=== PATIENT | male | born 1975 | race Caucasian/White ===

== ENCOUNTER 2016-09-27 20:46 | Emergency (ER) | payer BC ==
[~2016-09-27 20:46] MED LIST: [UNRECOGNIZED DRUG - REMARK]
[2016-09-27 21:24] LABS: INFLUENZA A SCREEN NEGATIVE (NEGATIVE); INFLUENZA B SCREEN NEGATIVE (NEGATIVE)
== END 2016-09-28 01:17 | disposition home or self-care (01) ==
LOC: ER 20:46
PROVIDERS: Hospitalist
DX: B34.9 Viral infection, unspecified (principal)
CPT/HCPCS: 71020; 87070; 87804; 87880; 99283